=== PATIENT | female | born 1990 | race Caucasian/White ===

== ENCOUNTER → 2017-03-23 | Outpatient (CLI) | payer BC ==
[~2017-03-23] VITALS: Ht 172.7 cm; Wt 81.0 kg
[~2017-03-23] MED LIST: DOCUSATE SODIU100 MG PO; ENDOCET 5-3251 EACH PO; FLAGYL250 MG PO; IBUPROFEN800 MG PO; MOTRIN800 MG PO; Motrin PO; PRENATAL VITAM1 EAC1 PO; Percocet 5/325,Endoc PO
[2017-03-23 14:19] VITALS: BP 108/63
== END | disposition home or self-care (01) ==
LOC: IVINF 13:30
DX: Z31.82 Encounter for Rh incompatibility status (principal); Z3A.28 28 weeks gestation of pregnancy
CPT/HCPCS: 96372; J2790

== ENCOUNTER 2017-06-14 09:40 | Inpatient (IN) | payer BC ==
[~2017-06-14] VITALS: Ht 172.7 cm; Wt 84.8 kg
[2017-06-14] VITALS (7 sets, daily range): BP systolic 105–117; BP diastolic 64–78
[2017-06-14 10:37] LABS: BASOPHIL (%) 0.2 % (0-1); EOSINOPHIL (%) 0.3 % (0-5); HEMATOCRIT 35.6 % (36.0-46.0); HEMOGLOBIN 11.8 G/DL (11.9-15.5); IMMATURE GRANULOCYTE (%) 1.2 % (0.0-0.7); LYMPHOCYTE COUNT 1.9 K/uL (1.0-2.8); MCH 29.6 PG (29.0-34.0); MCHC 33.1 G/DL (30.0-36.0); MCV 89.2 FL (83-99); MONOCYTE (%) 6.1 % (3-12); MONOCYTE COUNT 0.6 K/uL (0-0.8); NEUTROPHIL (%) 71.2 % (45-76); NEUTROPHIL COUNT 6.5 K/uL (1.8-6.4); PLATELET COUNT 263 K/uL (156-360); RBC DIS.WIDTH-CV 13.2 % (11.8-14.6); RBC DIS.WIDTH-SD 42.8 % (39-53); RED BLOOD COUNT 3.99 M/uL (3.80-5.20); WHITE BLOOD COUNT 9.2 K/uL (4.1-10.2)
[2017-06-14] MEDS ORDERED: MOTRIN800 MG PO (11:37)
[2017-06-14] MEDS ORDERED: PERCOCET 5/31 TABLET PO (11:37)
[2017-06-15 07:20] VITALS: BP 101/66
[2017-06-15 08:59] LABS: BASOPHIL (%) 0.1 % (0-1); EOSINOPHIL (%) 0 % (0-5); HEMATOCRIT 31.1 % (36.0-46.0); IMMATURE GRANULOCYTE (%) 0.7 % (0.0-0.7); LYMPHOCYTE (%) 13.8 % (15-42); MCH 29.5 PG (29.0-34.0); MCHC 32.2 G/DL (30.0-36.0); MCV 91.7 FL (83-99); MONOCYTE (%) 7.6 % (3-12); MONOCYTE COUNT 1.1 K/uL (0-0.8); NEUTROPHIL (%) 77.8 % (45-76); NEUTROPHIL COUNT 11.1 K/uL (1.8-6.4); PLATELET COUNT 266 K/uL (156-360); RBC DIS.WIDTH-CV 13.2 % (11.8-14.6); RBC DIS.WIDTH-SD 43.6 % (39-53); RED BLOOD COUNT 3.39 M/uL (3.80-5.20); WHITE BLOOD COUNT 14.3 K/uL (4.1-10.2)
[2017-06-15 10:33] VITALS: BP 110/65
[2017-06-15 14:36] VITALS: BP 118/73
[2017-06-15 19:16] VITALS: BP 108/57
[2017-06-15 22:23] VITALS: BP 107/56
[2017-06-16 02:20] VITALS: BP 110/55
== END 2017-06-16 16:00 | disposition home or self-care (01) | DRG 765 ==
LOC: 2WEST 09:40 → 2SOUTH 15:36 → 2WEST 06-16 16:00
PROVIDERS: Obstetrics & Gynecology
PROC: 10D00Z1 Extraction of Products of Conception, Low, Open Approach (ICD-10-PCS; principal; 2017-06-14)
DX: O48.0 Post-term pregnancy (principal); O36.0931 Maternal care for other rhesus isoimmunization, third trimester, fetus 1; F33.9 Major depressive disorder, recurrent, unspecified; O99.824 Streptococcus B carrier state complicating childbirth; Z37.0 Single live birth; Z3A.40 40 weeks gestation of pregnancy; Z82.49 Family history of ischemic heart disease and other diseases of the circulatory system; O69.81X1 Labor and delivery complicated by cord around neck, without compression, fetus 1; O87.4 Varicose veins of lower extremity in the puerperium; F41.9 Anxiety disorder, unspecified; O99.344 Other mental disorders complicating childbirth; O32.1XX1 Maternal care for breech presentation, fetus 1
CPT/HCPCS: 83030; 85025; 86850; 86870; 86900; 86901; J0690; J1100; J1885; J2274; J2405; J2790; J3010; J7120